=== PATIENT | male | born 1950 | race Caucasian/White ===

== ENCOUNTER 2017-12-21 10:17 | Day surgery (SDC) | payer MEDICARE, OTHER ==
[~2017-12-21 10:17] MED LIST: RINGER'S SOLUTION,LACTATED 1,000 ML IV PRN
[2017-12-21] MEDS ORDERED: RINGER'S SOLUTION,LACTATED 1,000 ML IV ONE (10:41)
[2017-12-21] MEDS ORDERED: RINGER'S SOLUTION,LACTATED 1,000 ML IV PRN (11:47)
--- NOTE | 2017-12-22 07:04 | OR ---
Operative Report - Dictated Report Narrative: OPERATIVE REPORT DATE OF OPERATION: 12/21/2017 PREOPERATIVE DIAGNOSIS: Family history of colon cancer. No recent dedicated colon studies. POSTOPERATIVE DIAGNOSIS: 4 mm polyp in the ascending colon (pathology pending) . Significant diverticulosis OPERATION: Colonoscopy with hot biopsy forceps polypectomy in the ascending colon SURGEON: Luis M Louise MD ANESTHESIA: BRADLEY Fultno CRNA INDICATIONS FOR PROCEDURE: The patient is a 67-year-old male referred by Dr. Salomon. The patient's last colonoscopy was done in 2004. He had a polyp removed from the rectum. Pathology report is not available. His sister had colon cancer at age 59. FINDINGS: 4 mm polyp in the ascending colon (pathology pending). Significant pancolonic diverticulosis. NARRATIVE OF PROCEDURE: The patient was identified in the holding area, and prior to the administration of anesthetic, a multidisciplinary timeout was observed. With the patient in the left lateral position and after the administration of intravenous sedation, the perineum was inspected. There was no evidence of pilonidal disease or skin breakdown. The external appearance of the anus was normal. Sphincter tone was good. The flexible fiberoptic colonoscope was inserted into the rectum which was insufflated with air. The rectal mucosa and submucosal vascular pattern appeared normal, the prep was seen to be complete. The scope was advanced through the sigmoid colon, which contained numerous large diverticular opening some of which were impacted with stool. The scope was advanced up the descending colon, and around the splenic flexure where the triangular haustral architecture of the transverse colon was seen. The scope was advanced across the transverse colon, around the hepatic flexure to the cecum, where the confluence of tenia and the ileocecal valve were identified. The mucosa at this level appeared normal. There was a 4 mm area of polypoid change in the ascending colon. This was photographed and then biopsied and thoroughly destroyed with electrocautery. The site was seen to be complete and hemostatic. The scope was then slowly withdrawn in a circular fashion so that all aspects of colonic mucosa were inspected. The colon was capacious and character but relatively normal in course. The haustral architecture appeared well preserved throughout with no evidence of external compression. The mucosa and submucosal vascular pattern appeared normal, specifically there was no gross evidence to suggest colitis or inflammatory bowel disease and no AV malformations were seen. There was pancolonic diverticulosis however it was most concentrated in the sigmoid colon. Numerous diverticula were impacted with stool but no juan dnaiel inflammation was noted. No additional polyps were encountered. The scope was gradually withdrawn to the level of the rectum. As much insufflated air as possible was removed. The scope was withdrawn from the patient and the procedure terminated. The patient tolerated the anesthetic and procedure well without complication and was transferred back to the ambulatory surgery area awake and in stable condition. The patient remained stable throughout a period of postoperative observation. He denied abdominal discomfort, was able to tolerate by mouth intake, and was up without assistance. I shared the operative findings with the patient and his and he was given copies of the photographs which appear in the medical record. He was discharged home with instructions not to engage in hazardous activity today, but may resume normal activity tomorrow, and advance diet as tolerated. History is to continue those medications as listed in the history and physical exam. I made arrangements to contact him with the biopsy reports and will make additional recommendations for treatment and follow-up based upon those results. A pamphlet on diverticular disease was reviewed with him and given to him with the recommendation of fiber supplement and higher fiber diet. Reviewed and electronically signed ADDENDUM: [] RECOMMENDATION: []
[2017-12-22 08:34] VITALS: BP 126/57
== END 2017-12-21 10:18 | disposition home or self-care (01) ==
LOC: AMB 10:17
PROVIDERS: ATTEND Surgery
PROC: 0DBK8ZZ Excision of Ascending Colon, Via Natural or Artificial Opening Endoscopic (ICD-10-PCS; principal; 2017-12-21)
DX: Z80.0 Family history of malignant neoplasm of digestive organs; N40.1 Benign prostatic hyperplasia with lower urinary tract symptoms; D12.2 Benign neoplasm of ascending colon; Z86.010 Personal history of colon polyps; K57.30 Diverticulosis of large intestine without perforation or abscess without bleeding